=== PATIENT | female | born 1990 ===

== ENCOUNTER 2019-12-27 11:58 | Outpatient (REF) | payer BC, SELFPAY ==
[2020-01-01 03:59] LABS: SARS-CoV-2 RNA Undetected (Undetected); SARS-CoV-2 Specimen Source Nasal
== END 2019-12-27 12:18 ==
LOC: NCHCN 11:58
PROVIDERS: PCP Internal Medicine; Visit Provider Internal Medicine
DX: Z20.828 Contact with and (suspected) exposure to other viral communicable diseases (principal)
CPT/HCPCS: U0003